=== PATIENT | male | born 1940 | race Hispanic/Latino ===

== ENCOUNTER 2017-05-14 13:09 | Inpatient (IN) | payer MEDICARE, OTHER ==
[2017-05-14 13:49] LABS: Basophils # (Auto) 0.1 K/mm3 (0.0-0.1); Basophils % (Auto) 0.8 % (0.0-1.8); Eosinophils # (Auto) 0.2 K/mm3 (0.0-0.4); Eosinophils % (Auto) 3.5 % (0.0-4.3); Hematocrit 47.4 % (35.5-45.6); Hemoglobin 16.1 gm/dl (11.8-15.2); Lymphocytes # (Auto) 1.8 K/mm3 (1.2-5.4); Lymphocytes % (Auto) 28.6 % (13.4-35.0); Mean Corpuscular HGB Conc 34 % (32-34); Mean Corpuscular Hemoglobin 32 pg (28-32); Mean Corpuscular Volume 94 fl (84-94); Monocytes # (Auto) 0.9 K/mm3 (0.0-0.8); Monocytes % (Auto) 14.4 % (0.0-7.3); Platelet Count 189 K/mm3 (140-440); Red Blood Count 5.04 M/mm3 (3.65-5.03); Red Cell Distribution Width 14.3 % (13.2-15.2)
--- NOTE | 2017-05-14 13:51 | Cat Scan Report ---
FINAL REPORT EXAM: CT HEAD/BRAIN WO CON HISTORY: neuro deficits TECHNIQUE: CT of the head was performed. No intravenous contrast was administered. PRIORS: None. FINDINGS: There is moderate cerebral atrophy. There is mild ischemic change in the white matter. There are old lacunar infarcts in right basal ganglia and right periventricular white matter. There is no evidence of intracranial hemorrhage. There is no edema, mass effect or midline shift. There are no abnormal extra-axial fluid collections. The ventricles are appropriate for brain volume. There is no skull fracture seen. The visualized aspects of the sinuses are clear. IMPRESSION: There is no acute intracranial abnormality identified.
[2017-05-14 14:02] LABS: BUN/Creatinine Ratio 21; Blood Urea Nitrogen 19 mg/dL (9-20); Calcium 9.1 mg/dL (8.4-10.2); Hemolysis Index 10
[2017-05-14 14:11] LABS: INR 0.98 (0.87-1.13)
[2017-05-14 14:12] LABS: Partial Thromboplastin Time 30.9 Sec. (24.2-36.6)
--- NOTE | 2017-05-14 14:40 | Emergency Department Report ---
ED Neuro Deficit HPI - General Chief Complaint: Neuro Symptoms/Deficit Stated Complaint: SLURRED SPEECH/HX OF STROKE Time Seen by Provider: 05/14/17 13:45 Source: patient Mode of arrival: Wheelchair Limitations: No Limitations - History of Present Illness Initial Comments: Patient is a 76-year-old male presents to emergency room with slurred speech and difficulty finding his words. Patient states the symptoms started about 3 days ago. Last known well time was 3 days ago. Patient states that he has left leg weakness due to a wound in [place]. But he is able to move all other extremities patient states that his strength is at baseline. Patient denies chest pain and shortness of breath. Patient denies abdominal pain and fever and chills. Patient denies confusion. -: Gradual, days(s) (3 days ago) Location: speech Presenting Symptoms: Present: Unable to Speak Clearly History of same: No Place: home Severity: severe Improves With: none Worsens With: none On Anticoagulants: No Context: gradual onset Associated Symptoms: denies other symptoms Treatments Prior to Arrival: Aspirin - Related Data Home Medications: Home Medications Medication Instructions Recorded Confirmed Last Taken Multivitamin [Multiple Vitamins] 1 each PO DAILY 05/14/17 05/14/17 05/13/17 Tamsulosin [Flomax] 0.4 mg PO QHS 05/14/17 05/14/17 05/13/17 diphenhydrAMINE [Benadryl CAP] 25 mg PO QHS PRN 05/14/17 05/14/17 05/13/17 Allergies/Adverse Reactions: Allergies Allergy/AdvReac Type Severity Reaction Status Date / Time No Known Allergies Allergy Unverified 05/24/13 16:31 ED Review of Systems ROS: Stated complaint: SLURRED SPEECH/HX OF STROKE Other details as noted in HPI Comment: All other systems reviewed and negative Constitutional: denies: chills, fever Eyes: denies: eye pain, eye discharge, vision change ENT: denies: ear pain, throat pain Respiratory: denies: cough, shortness of breath, wheezing Cardiovascular: denies: chest pain, palpitations Endocrine: no symptoms reported Gastrointestinal: denies: abdominal pain, nausea, diarrhea Genitourinary: denies: urgency, dysuria Musculoskeletal: denies: back pain, joint swelling, arthralgia Skin: denies: rash, lesions Neurological: denies: headache, weakness, paresthesias Psychiatric: denies: anxiety, depression Hematological/Lymphatic: denies: easy bleeding, easy bruising ED Past Medical Hx - Past Medical History Previous Medical History?: Yes Hx CVA: Yes Additional medical history: high chol - Surgical History Past Surgical History?: Yes Additional Surgical History: leg surgery - Family History Family history: hypertension - Social History Smoking Status: Never Smoker Substance Use Type: None - Medications Home Medications: Home Medications Medication Instructions Recorded Confirmed Last Taken Type Multivitamin [Multiple Vitamins] 1 each PO DAILY 05/14/17 05/14/17 05/13/17 History Tamsulosin [Flomax] 0.4 mg PO QHS 05/14/17 05/14/17 05/13/17 History diphenhydrAMINE [Benadryl CAP] 25 mg PO QHS PRN 05/14/17 05/14/17 05/13/17 History ED Neuro Physical Exam - General Limitations: No Limitations General appearance: alert, in no apparent distress Suspected Stroke: Yes - Head Head exam: Present: atraumatic, normocephalic - Eye Eye exam: Present: normal appearance - ENT ENT exam: Present: mucous membranes moist, TM's normal bilaterally - Neck Neck exam: Present: normal inspection - Respiratory Respiratory exam: Present: normal lung sounds bilaterally. Absent: respiratory distress - Cardiovascular Cardiovascular Exam: Present: regular rate, normal rhythm. Absent: systolic murmur, diastolic murmur, rubs, gallop - GI/Abdominal GI/Abdominal exam: Present: soft, normal bowel sounds - Rectal Rectal exam: Present: deferred - Extremities Exam Extremities exam: Present: normal inspection - Back Exam Back exam: Present: normal inspection - Neurological Exam Neurological exam: Present: alert, oriented X3 - NIHSS Assessment Interval: Baseline 1a. Level of Consciousness: alert 1b. LOC Questions: answers correctly 1c. LOC Commands: performs tasks correctly 2. Best Gaze: normal 3. Visual: no visual loss 4. Facial Palsy: normal symmetrical movement 5b. Motor Arm Right: no drift 5a. Motor Arm Left: no drift 6a. Motor Leg Left: no drift 6b. Motor Leg Right: no drift 7. Limb Ataxia: absent 8. Sensory: normal 9. Best Language: mild/moderate aphasia 10. Dysarthria: mild/moderate dysarthria 11. Extinction/Inattention: no abnormality Total Score: 2 Stroke Severity: Minor Stroke - Psychiatric Psychiatric exam: Present: normal affect, normal mood - Skin Skin exam: Present: warm, dry, intact, normal color. Absent: rash ED Course Vital Signs 05/14/17 05/14/17 05/14/17 13:13 13:56 13:58 Temperature 97.7 F Pulse Rate 89 Respiratory 18 Rate Blood Pressure 204/125 O2 Sat by Pulse 95 95 95 Oximetry 05/14/17 05/14/17 05/14/17 14:00 14:02 14:04 Temperature Pulse Rate 71 68 66 Respiratory 13 19 11 L Rate Blood Pressure 182/98 181/101 191/95 O2 Sat by Pulse 96 94 97 Oximetry 05/14/17 05/14/17 05/14/17 14:06 14:16 14:30 Temperature Pulse Rate 71 69 71 Respiratory 14 12 19 Rate Blood Pressure 191/95 196/106 207/119 O2 Sat by Pulse 94 95 97 Oximetry 05/14/17 05/14/17 05/14/17 14:46 15:00 15:16 Temperature Pulse Rate 71 71 67 Respiratory 13 19 21 Rate Blood Pressure 188/113 186/111 187/102 O2 Sat by Pulse 94 98 94 Oximetry 05/14/17 05/14/17 05/14/17 15:30 15:40 15:46 Temperature Pulse Rate 67 79 Respiratory 12 12 14 Rate Blood Pressure 200/107 170/90 O2 Sat by Pulse 95 95 97 Oximetry 05/14/17 05/14/17 05/14/17 16:00 16:16 16:30 Temperature Pulse Rate 82 73 77 Respiratory 16 12 14 Rate Blood Pressure 166/89 177/90 183/91 O2 Sat by Pulse 99 97 98 Oximetry 05/14/17 05/14/17 05/14/17 16:46 17:00 17:16 Temperature Pulse Rate 73 77 72 Respiratory 11 L 26 H 21 Rate Blood Pressure 162/99 159/76 171/85 O2 Sat by Pulse 98 97 95 Oximetry 05/14/17 05/14/17 17:30 18:00 Temperature Pulse Rate 70 68 Respiratory 12 21 Rate Blood Pressure 150/80 161/89 O2 Sat by Pulse 96 97 Oximetry - Reevaluation(s) Reevaluation #1: 05/14/17 15:15.... BP still I will treat with hydralazine. No change in neurologic status. - Lab Data Result diagrams: 02/23/18 13:23 05/14/17 13:23 Lab Results 05/14/17 05/14/17 05/14/17 Range/Units 13:22 13:23 13:23 WBC 6.3 (4.5-11.0) K/mm3 RBC 5.04 H (3.65-5.03) M/mm3 Hgb 16.1 H (11.8-15.2) gm/dl Hct 47.4 H (35.5-45.6) % MCV 94 (84-94) fl MCH 32 (28-32) pg MCHC 34 (32-34) % RDW 14.3 (13.2-15.2) % Plt Count 189 (140-440) K/mm3 Lymph % (Auto) 28.6 (13.4-35.0) % [place] % (Auto) 14.4 H (0.0-7.3) % Eos % (Auto) 3.5 (0.0-4.3) % Baso % (Auto) 0.8 (0.0-1.8) % Lymph # 1.8 (1.2-5.4) K/mm3 [place] # 0.9 H (0.0-0.8) K/mm3 Eos # 0.2 (0.0-0.4) K/mm3 Baso # 0.1 (0.0-0.1) K/mm3 Seg Neutrophils % 52.7 (40.0-70.0) % Seg Neutrophils # 3.3 (1.8-7.7) K/mm3 PT 13.5 (12.2-14.9) Sec. INR 0.98 (0.87-1.13) APTT 30.9 (24.2-36.6) Sec. Thrombin Time (15.1-19.6) Sec. Sodium (137-145) mmol/L Potassium (3.6-5.0) mmol/L Chloride (98-107) mmol/L Carbon Dioxide (22-30) mmol/L Anion Gap mmol/L BUN (9-20) mg/dL Creatinine (0.8-1.5) mg/dL Estimated GFR ml/min BUN/Creatinine Ratio % Glucose (75-100) mg/dL POC Glucose 126 H (70-105) Calcium (8.4-10.2) mg/dL Troponin T (0.00-0.029) ng/mL 05/14/17 05/14/17 Range/Units 13:23 13:23 WBC (4.5-11.0) K/mm3 RBC (3.65-5.03) M/mm3 Hgb (11.8-15.2) gm/dl Hct (35.5-45.6) % MCV (84-94) fl MCH (28-32) pg MCHC (32-34) % RDW (13.2-15.2) % Plt Count (140-440) K/mm3 Lymph % (Auto) (13.4-35.0) % [place] % (Auto) (0.0-7.3) % Eos % (Auto) (0.0-4.3) % Baso % (Auto) (0.0-1.8) % Lymph # (1.2-5.4) K/mm3 [place] # (0.0-0.8) K/mm3 Eos # (0.0-0.4) K/mm3 Baso # (0.0-0.1) K/mm3 Seg Neutrophils % (40.0-70.0) % Seg Neutrophils # (1.8-7.7) K/mm3 PT (12.2-14.9) Sec. INR (0.87-1.13) APTT (24.2-36.6) Sec. Thrombin Time 16.4 (15.1-19.6) Sec. Sodium 141 (137-145) mmol/L Potassium 4.0 (3.6-5.0) mmol/L Chloride 101.5 (98-107) mmol/L Carbon Dioxide 29 (22-30) mmol/L Anion Gap 15 mmol/L BUN 19 (9-20) mg/dL Creatinine 0.9 (0.8-1.5) mg/dL Estimated GFR > 60 ml/min BUN/Creatinine Ratio 21 % Glucose 125 H (75-100) mg/dL POC Glucose (70-105) Calcium 9.1 (8.4-10.2) mg/dL Troponin T < 0.010 (0.00-0.029) ng/mL - EKG Data -: EKG Interpreted by K[facility] EKG shows normal: sinus rhythm, axis, intervals, QRS complexes, ST-T waves Rate: normal Interpretation: other (positive for PVC) - Radiology Data Radiology results: report reviewed interpreted by me: No acute findings on head CT - Medical Decision Making Is a 76-year-old emergency room with slurred speech and aphasia appears to be secondary to his CVA. Will admit patient to the hospital for further eval and treatment. Discussed case with hospitalist, hospitalist agreed to admit. Patient is outside the window for TPA - Differential Diagnosis electrolyte imbalance. Dehydration. CVA. Critical Care Time: Yes Critical care attestation.: If time is entered above; I have spent that time in minutes in the direct care of this critically ill patient, excluding procedure time. Critical Care Time: 45 minutes spent for critical care time ED Disposition Clinical Impression: Aphasia, Slurred speech, CVA (cerebral vascular accident), Hypertension Disposition: OP ADMIT IP TO THIS HOSP Is pt being admited?: Yes Does the pt Need Aspirin: No Condition: Critical Time of Disposition: 15:15
[2017-05-14] MEDS ORDERED: ASPIRIN PO ONE (14:49)
[2017-05-14] MEDS ORDERED: APRESOLINE IV ONE (15:25)
--- NOTE | 2017-05-14 16:08 | History and Physical Report ---
History of Present Illness Chief complaint: I cant talk History of present illness: 76 YO Male with CVA, HLD presents to ED for evaluation. Pt states that he has experienced slurred speech, and difficulty finding his words, and left arm and leg weakness. Patient states the symptoms started 3 days ago, and have been persistent. Last known well time was 3 days ago. Pt seen and evaluated in ED and found to have evidence of acute CVA. Pt is outside the therapeutic window for TPA. Pt denies fever, chills, CP, Palpitations, NVD, Syncope, BRBPR, Trauma , BRBPR. Pt admitted to telemetry and treated IAW Stroke protocol. Past History Past Medical History: stroke Past Surgical History: Other (Left leg surgery) Social history: . denies: smoking, alcohol abuse, prescription drug abuse, IV drug use Family history: hypertension Medications and Allergies Allergies Allergy/AdvReac Type Severity Reaction Status Date / Time No Known Allergies Allergy Unverified 05/24/13 16:31 Home Medications Medication Instructions Recorded Confirmed Last Taken Type Multivitamin [Multiple Vitamins] 1 each PO DAILY 05/14/17 05/14/17 05/13/17 History Tamsulosin [Flomax] 0.4 mg PO QHS 05/14/17 05/14/17 05/13/17 History diphenhydrAMINE [Benadryl CAP] 25 mg PO QHS PRN 05/14/17 05/14/17 05/13/17 History Review of Systems Constitutional: no weight loss, no weight gain, no fever, no chills Ears, nose, mouth and throat: no ear pain, no ear discharge, no tinnitis, no decreased hearing, no nose pain, no nasal congestion Cardiovascular: no chest pain, no orthopnea, no palpitations, no rapid/ irregular heart beat, no edema, no syncope Respiratory: no cough, no cough with sputum, no excessive sputum, no hemoptysis , no shortness of breath Gastrointestinal: no abdominal pain, no nausea, no vomiting, no diarrhea, no constipation, no change in bowel habits Genitourinary Male: no hematuria, no flank pain, no discharge, no urinary frequency, no urinary hesitancy, no nocturia Rectal: no pain, no incontinence, no bleeding Musculoskeletal: no neck stiffness, no neck pain, no shooting arm pain, no arm numbness/tingling, no low back pain, no shooting leg pain Integumentary: no rash, no pruritis, no redness, no sores, no wounds, no jaundice Neurological: weakness, change in speech, gait dysfunction Psychiatric: no anxiety, no memory loss, no change in sleep habits, no sleep disturbances, no insomnia, no hypersomnia, no change in appetite Endocrine: no cold intolerance, no heat intolerance, no polyphagia, no excessive thirst, no polydipsia, no polyuria Hematologic/Lymphatic: no easy bruising, no easy bleeding, no lymphadenopathy, no lymphedema Allergic/Immunologic: no urticaria, no allergic rhinitis, no wheezing, no persistent infections, no anaphylaxis Exam - Constitutional Vitals: Temp Pulse Resp BP Pulse Ox 97.7 F 67 12 200/107 95 05/14/17 13:13 05/14/17 15:30 05/14/17 15:40 05/14/17 15:30 05/14/17 15:40 General appearance: Present: mild distress - EENT Eyes: Present: PERRL ENT: hearing intact, clear oral mucosa - Neck Neck: Present: supple, normal ROM - Respiratory Respiratory: bilateral: diminished - Cardiovascular Heart Sounds: Present: S1 & S2. Absent: rub, click - Extremities Extremities: pulses symmetrical, No edema Peripheral Pulses: within normal limits - Abdominal General gastrointestinal: Present: soft, non-tender, non-distended, normal bowel sounds Male genitourinary: Present: normal - Integumentary Integumentary: Present: clear, warm, dry - Musculoskeletal Musculoskeletal: left sided weakness - Psychiatric Psychiatric: appropriate mood/affect, intact judgment & insight - Neurologic Neurologic: focal deficits, no gait normal Results - Labs CBC & Chem 7: 05/14/17 13:23 05/14/17 13:23 Labs: Abnormal lab results 05/14/17 05/14/17 05/14/17 Range/Units 13:22 13:23 13:23 RBC 5.04 H (3.65-5.03) M/mm3 Hgb 16.1 H (11.8-15.2) gm/dl Hct 47.4 H (35.5-45.6) % [place] % (Auto) 14.4 H (0.0-7.3) % [place] # 0.9 H (0.0-0.8) K/mm3 Glucose 125 H (75-100) mg/dL POC Glucose 126 H (70-105) Assessment and Plan - Patient Problems (1) CVA (cerebral vascular accident) Current Visit: Yes Status: Suspected Qualifiers: Precerebral and cerebral artery: middle cerebral artery Laterality of affected vessel: right Plan to address problem: Stroke Protocol: CT head, MRI Brain, MRA Brain, Carotid Doppler, Echo, Antiplatelet therapy, Lipid panel, PT/OT/ Speech therapy (2) 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 (4) HLD (hyperlipidemia) Current Visit: Yes Status: Acute Qualifiers: Hyperlipidemia type: mixed hyperlipidemia Qualified Code(s): E78.2 - Mixed hyperlipidemia Plan to address problem: Lipid Panel, statin therapy, (5) Carotid stenosis Current Visit: Yes Status: Acute Plan to address problem: Carotid Doppler, vascular surgery consulted, (6) DVT prophylaxis Current Visit: Yes Status: Acute
[2017-05-14] MEDS ORDERED: TYLENOL PO PRN (16:09)
[2017-05-14] MEDS ORDERED: PROVENTIL IH PRN (16:09)
[2017-05-14] MEDS ORDERED: ZOFRAN IV PRN (16:09)
[2017-05-14] MEDS ORDERED: REGLAN PO PRN (16:09)
[2017-05-14] MEDS ORDERED: SODIUM CHLORIDE FLUSH SYRINGE 10 ML IV PRN (16:09)
[2017-05-14] MEDS ORDERED: PHENERGAN PR PRN (16:09)
[2017-05-14] MEDS: FLOMAX PO SCH (21:46)
[2017-05-15 06:03] LABS: Chol/HDL Ratio 5.17 %
--- NOTE | 2017-05-15 12:39 | Magnetic Resonance Report ---
MRI OF THE BRAIN WITHOUT CONTRAST: HISTORY: CVA PROCEDURE: Multiplanar, multisequence MR imaging of the brain without IV contrast was performed. FINDINGS: Limited exam. A 1.7 x 0.7 cm area of diffusion restriction is identified within the right side of the connie on diffusion image 10. There is no evidence for hemorrhage, mass or mass effect. No extra axial fluid collection. Advanced volume loss and nonspecific chronic white matter changes are identified. The midline structures are central. The basal cisterns are patent. Normal ventricular size. The orbital cavities and sella turcica demonstrate no abnormality. The visualized paranasal sinuses and mastoid air cells are well aerated. IMPRESSION: 1.7 x 0.7 cm area of subacute ischemia in the right connie. No evidence for hemorrhage. Volume loss. Chronic white matter changes.
--- NOTE | 2017-05-15 12:40 | Magnetic Resonance Report ---
MRA HEAD WITHOUT CONTRAST HISTORY: Stroke. [id number] imaging with MIP reformations of the [place] is submitted. The basilar artery appears irregular with focal areas of narrowing estimated at 50-75%. The basilar artery remains patent. The posterior cerebral arteries are patent with no significant stenosis. The remaining arteries appear widely patent and free of hemodynamically significant stenosis, aneurysm or dissection. IMPRESSION: No evidence for large vessel occlusion or aneurysm. 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
[2017-05-15] MEDS: PLAVIX PO SCH ×2 (13:26→22:07)
--- NOTE | 2017-05-15 14:23 | Progress Note ---
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 will place on coreg and norvasc // HLD (hyperlipidemia) ordered Lipid Panel, statin therapy, // Carotid stenosis Carotid Doppler showed 50-75% stenosis on Rt ICA, vascular surgery consulted, // DVT prophylaxis/GI Px lovenox /PPI Physical exam: General appearance: Present: mild distress - EENT Eyes: Present: PERRL ENT: hearing intact, clear oral mucosa - Neck Neck: Present: supple, normal ROM - Respiratory Respiratory: bilateral: diminished - Cardiovascular Heart Sounds: Present: S1 & S2. Absent: rub, click - Extremities Extremities: pulses symmetrical, No edema Peripheral Pulses: within normal limits - Abdominal General gastrointestinal: Present: soft, non-tender, non-distended, normal bowel sounds Male genitourinary: Present: normal - Integumentary Integumentary: Present: clear, warm, dry - Musculoskeletal Musculoskeletal: left sided weakness - Psychiatric Psychiatric: appropriate mood/affect, intact judgment & insight - Neurologic Neurologic: focal deficits, no gait normal Subjective Date of service: 05/15/17 Interval history: pt seen and examined c/o left sided weakness and difficulty in speech Objective - Constitutional Vitals: Vital Signs - 12hr 05/15/17 05/15/17 05/15/17 04:00 05:12 08:06 Temperature 98.0 F Pulse Rate 69 76 77 Respiratory 18 Rate Blood Pressure 167/99 171/95 O2 Sat by Pulse 95 96 Oximetry 05/15/17 10:00 Temperature Pulse Rate Respiratory Rate Blood Pressure O2 Sat by Pulse 96 Oximetry - Labs CBC & Chem 7: 05/14/17 13:23 05/14/17 13:23 Labs: Abnormal lab results 05/14/17 05/15/17 Range/Units 13:22 05:11 POC Glucose 126 H (70-105) Cholesterol 202 H (50-199) mg/dL LDL Cholesterol Direct 145 H (50-130) mg/dL HDL Cholesterol 39 L (40-59) mg/dL
[2017-05-15] MEDS ORDERED: APRESOLINE PO PRN (17:18)
[2017-05-15] MEDS: FLOMAX PO SCH (22:07)
[2017-05-15] MEDS: NORVASC PO SCH (22:07)
[2017-05-15] MEDS: COREG PO SCH (22:07)
[2017-05-16] MEDS ORDERED: APRESOLINE IV PRN (09:30)
[2017-05-16] MEDS: COREG PO SCH ×3 (11:22→22:32)
[2017-05-16] MEDS: NORVASC PO SCH (11:23)
[2017-05-16] MEDS: PLAVIX PO SCH (11:23)
--- NOTE | 2017-05-16 13:31 | Consultation ---
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 He has a prior history of having head trauma about 2 years ago, had the onset of weakness and numbness of his left side, speech difficulties, speech slurring, associated with headache and now has residual weakness and difficulty walking. When I initially saw him, he cannot remember my name, seemed somewhat confused. 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 Subsequent to that, he had persistent vertigo and memory loss. I know this from the statements he made to me following the head injury and he did consult with me informally about followup care during the interval that I was seeing him on a frequent basis. PHYSICAL EXAMINATION: NEUROLOGIC: On my examination at this point, he has difficulty with his gait, slurred speech problems with coordination of his left side, bilateral leg weakness. Cranial nerves 2-12 are intact except for the dysarthria and dysphagia. The patient has a supple neck, can stand up, walk. No seizures are noted. No obvious motor weakness is present. IMPRESSION: Acute stroke, superimposed on a history of prior head trauma. Please see my notes regarding prior evaluations of the patient when he was hospitalized at [facility] with a traumatic head injury. Plan to review the CT, MRI, make further recommendations. [facility]# [id number] PATRICK/TYLER
--- NOTE | 2017-05-16 13:45 | Progress Note ---
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 Placed on coreg and norvasc will increase coreg to 12.5 BID // HLD (hyperlipidemia) ordered Lipid Panel, statin therapy, // Carotid stenosis Carotid Doppler showed 50-75% stenosis on Rt ICA, vascular surgery consulted, // DVT prophylaxis/GI Px lovenox /PPI Discharge plan: need KATHY Physical exam: General appearance: Present: mild distress - EENT Eyes: Present: PERRL ENT: hearing intact, clear oral mucosa - Neck Neck: Present: supple, normal ROM - Respiratory Respiratory: bilateral: diminished - Cardiovascular Heart Sounds: Present: S1 & S2. Absent: rub, click - Extremities Extremities: pulses symmetrical, No edema Peripheral Pulses: within normal limits - Abdominal General gastrointestinal: Present: soft, non-tender, non-distended, normal bowel sounds Male genitourinary: Present: normal - Integumentary Integumentary: Present: clear, warm, dry - Musculoskeletal Musculoskeletal: left sided weakness - Psychiatric Psychiatric: appropriate mood/affect, intact judgment & insight - Neurologic Neurologic: focal deficits, no gait normal Subjective Date of service: 05/16/17 Interval history: pt seen and examined c/o left sided weakness and difficulty in speech had PT eval today, BP remained elevated Objective - Constitutional Vitals: Vital Signs - 12hr 05/16/17 05/16/17 05/16/17 05:00 05:43 08:38 Temperature 98.2 F 97.6 F Pulse Rate 65 73 74 Respiratory 20 18 Rate Blood Pressure Blood Pressure 160/93 166/99 [Left] O2 Sat by Pulse 94 96 Oximetry 05/16/17 05/16/17 11:22 11:23 Temperature Pulse Rate 74 74 Respiratory Rate Blood Pressure 166/99 166/99 Blood Pressure [Left] O2 Sat by Pulse Oximetry - Labs CBC & Chem 7: 05/14/17 13:23 05/14/17 13:23
[2017-05-16] MEDS: FLOMAX PO SCH (22:32)
[2017-05-17] MEDS ORDERED: COREG PO SCH (08:05)
--- NOTE | 2017-05-17 09:57 | Consultation ---
History of Present Illness Consult date: 05/17/17 History of present illness: see my neurology consult note dictated yesterday... patint well known to me medically I have been seeing him for about ten years this is first time stroke plan to review imaging studies determine best treatment options Thanks for consult Past History Past Medical History: stroke Past Surgical History: Other (Left leg surgery) Social history: . denies: smoking, alcohol abuse, prescription drug abuse, IV drug use Family history: hypertension Medications and Allergies Allergies Allergy/AdvReac Type Severity Reaction Status Date / Time No Known Allergies Allergy Unverified 05/24/13 16:31 Home Medications Medication Instructions Recorded Confirmed Last Taken Type Multivitamin [Multiple Vitamins] 1 each PO DAILY 05/14/17 05/14/17 05/13/17 History Tamsulosin [Flomax] 0.4 mg PO QHS 05/14/17 05/14/17 05/13/17 History diphenhydrAMINE [Benadryl CAP] 25 mg PO QHS PRN 05/14/17 05/14/17 05/13/17 History Active Meds: Active Medications Acetaminophen (Tylenol) 650 mg PO Q4H PRN PRN Reason: Pain, Mild (1-3) Albuterol (Proventil) 2.5 mg IH Q3HRT PRN PRN Reason: Shortness Of Breath Amlodipine Besylate (Norvasc) 10 mg PO QDAY [facility] Last Admin: 05/16/17 11:23 Dose: 10 mg Atorvastatin Calcium (Lipitor) 40 mg PO QHS [facility] Last Admin: 05/16/17 22:32 Dose: 40 mg Carvedilol (Coreg) 25 mg PO BID [facility] Clopidogrel Bisulfate (Plavix) 75 mg PO QDAY [facility] Last Admin: 05/16/17 11:23 Dose: 75 mg Hydralazine HCl (Apresoline) 5 mg IV Q30MIN PRN PRN Reason: Hypertension Metoclopramide HCl (Reglan) 10 mg PO Q6H PRN PRN Reason: Nausea And Vomiting Ondansetron HCl (Zofran) 4 mg IV Q8H PRN PRN Reason: N/V unrelieved by Reglan Promethazine HCl (Phenergan) 25 mg [place] Q6H PRN PRN Reason: Nausea And Vomiting Sodium Chloride (Sodium Chloride Flush Syringe 10 Ml) 10 ml IV PRN PRN PRN Reason: LINE FLUSH Tamsulosin HCl (Flomax) 0.4 mg PO QHS [facility] Last Admin: 05/16/17 22:32 Dose: 0.4 mg Physical Examination - Vital Signs Vital Signs: Vital Signs Temp Pulse Resp BP Pulse Ox 97.7 F 89 18 204/125 95 05/14/17 13:13 05/14/17 13:13 05/14/17 13:13 05/14/17 13:13 05/14/17 13:13 Results - Laboratory Findings CBC and BMP: 05/14/17 13:23 05/14/17 13:23 Abnormal Lab Findings: Abnormal Labs 05/14/17 05/14/17 05/14/17 13:22 13:23 13:23 RBC 5.04 H Hgb 16.1 H Hct 47.4 H [place] % (Auto) 14.4 H [place] # 0.9 H Glucose 125 H POC Glucose 126 H Cholesterol LDL Cholesterol Direct HDL Cholesterol 05/15/17 05:11 RBC Hgb Hct [place] % (Auto) [place] # Glucose POC Glucose Cholesterol 202 H LDL Cholesterol Direct 145 H HDL Cholesterol 39 L
[2017-05-17] MEDS: PLAVIX PO SCH (11:15)
[2017-05-17] MEDS: COREG PO SCH ×2 (11:15→22:09)
[2017-05-17] MEDS: NORVASC PO SCH (11:15)
--- NOTE | 2017-05-17 14:43 | Consultation ---
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 At time of examination, the patient has residual left-sided weakness and mild degree of expressive aphasia with slurring of. He states that his symptoms began on Wednesday and his [id number] brought him to the emergency room. An MRI and MRA were performed. Carotid ultrasound was also performed which demonstrates 50 -79% stenosis on the right. The MRA demonstrates basilar artery stenosis. Past History Past Medical History: stroke Past Surgical History: Other (Left leg surgery) Social history: . denies: smoking, alcohol abuse, prescription drug abuse, IV drug use Family history: hypertension Medications and Allergies Allergies Allergy/AdvReac Type Severity Reaction Status Date / Time No Known Allergies Allergy Unverified 05/24/13 16:31 Home Medications Medication Instructions Recorded Confirmed Last Taken Type Multivitamin [Multiple Vitamins] 1 each PO DAILY 05/14/17 05/14/17 05/13/17 History Tamsulosin [Flomax] 0.4 mg PO QHS 05/14/17 05/14/17 05/13/17 History diphenhydrAMINE [Benadryl CAP] 25 mg PO QHS PRN 05/14/17 05/14/17 05/13/17 History Active Meds: Active Medications Acetaminophen (Tylenol) 650 mg PO Q4H PRN PRN Reason: Pain, Mild (1-3) Albuterol (Proventil) 2.5 mg IH Q3HRT PRN PRN Reason: Shortness Of Breath Amlodipine Besylate (Norvasc) 10 mg PO QDAY [facility] Last Admin: 05/17/17 11:15 Dose: 10 mg Atorvastatin Calcium (Lipitor) 40 mg PO QHS [facility] Last Admin: 05/16/17 22:32 Dose: 40 mg Carvedilol (Coreg) 25 mg PO BID [facility] Last Admin: 05/17/17 11:15 Dose: 25 mg Clopidogrel Bisulfate (Plavix) 75 mg PO QDAY [facility] Last Admin: 05/17/17 11:15 Dose: 75 mg Hydralazine HCl (Apresoline) 5 mg IV Q30MIN PRN PRN Reason: Hypertension Metoclopramide HCl (Reglan) 10 mg PO Q6H PRN PRN Reason: Nausea And Vomiting Ondansetron HCl (Zofran) 4 mg IV Q8H PRN PRN Reason: N/V unrelieved by Reglan Promethazine HCl (Phenergan) 25 mg [place] Q6H PRN PRN Reason: Nausea And Vomiting Sodium Chloride (Sodium Chloride Flush Syringe 10 Ml) 10 ml IV PRN PRN PRN Reason: LINE FLUSH Tamsulosin HCl (Flomax) 0.4 mg PO QHS [facility] Last Admin: 05/16/17 22:32 Dose: 0.4 mg Review of Systems All systems: negative Exam - Constitutional Vitals: Temp Pulse Resp BP Pulse Ox 97.6 F 76 20 160/87 95 05/17/17 08:44 05/17/17 08:44 05/17/17 08:44 05/17/17 08:44 05/17/17 08:44 General appearance: Present: no acute distress - EENT Eyes: Present: EOM intact ENT: hearing intact - Neck Neck: Present: supple, normal ROM - Abdominal General gastrointestinal: Present: deferred Male genitourinary: Present: deferred - Rectal Rectal Exam: deferred - Musculoskeletal Musculoskeletal: left sided weakness - Psychiatric Psychiatric: appropriate mood/affect, cooperative Results - Labs CBC & Chem 7: 05/14/17 13:23 05/14/17 13:23 - Imaging and Cardiology MRI - head: report reviewed, image reviewed Venous US: report reviewed, image reviewed Assessment and Plan Patient with a history of carotid stenosis of 50-79% on the right. We will order a CTA of the head and neck for further evaluation of. 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 Recommended the patient be optimized on antihypertensives, a statin and an an antiplatelet drugs.
[2017-05-17] MEDS: FLOMAX PO SCH (22:09)
--- NOTE | 2017-05-17 23:57 | Cat Scan Report ---
FINAL REPORT PROCEDURE: CT ANGIO NECK TECHNIQUE: Computerized tomographic angiography of the neck was performed after the IV injection of iodinated nonionic contrast including image processing. The image data was postprocessed using 2-dimensional multiplanar reformatted (MPR) and 3-dimensional (MIP and/or volume rendered) techniques. HISTORY: carotid stenosis COMPARISON: No prior studies are available for comparison. Note: Assessment of carotid artery stenosis is based on measurement of the distal internal carotid artery diameter as the denominator for stenosis calculations and the [place] Symptomatic Carotid Endarterectomy Trial (NASCET) stenosis criteria . CPT 3100F FINDINGS: Sinuses: Normal . Non vascular cervical structures: No significant abnormality . Aortic arch: There is calcified plaque in the aortic arch. There is no aneurysm or dissection.. Right carotid artery: The right common carotid artery is patent. There is calcified and soft plaque at the carotid bulb and proximal right internal carotid artery. There is focal high-grade stenosis of the origin of the right internal carotid artery at approximately 95 percent. Distal right internal carotid artery is patent and normal in caliber. There is no dissection.. Left carotid artery: The left common carotid artery is patent. There is calcified plaque at the left carotid bulb with 50-69 percent focal stenosis. Remainder of the internal carotid artery is patent and normal in caliber. There is no dissection.. Vertebral arteries: The right vertebral artery is dominant. Left vertebral artery is small in caliber but patent.. IMPRESSION: There is calcified and soft plaque at the carotid bulb and proximal right internal carotid artery. There is focal high-grade stenosis of the origin of the right internal carotid artery at approximately 95 percent. . There is calcified plaque at the left carotid bulb with 50-69 percent focal stenosis. Remainder of the internal carotid artery is patent and normal in caliber. The right vertebral artery is dominant. Left vertebral artery is small in caliber but patent..
--- NOTE | 2017-05-18 02:32 | Cat Scan Report ---
FINAL REPORT PROCEDURE: CT ANGIO HEAD TECHNIQUE: Computerized tomographic angiography of the head was performed after the IV injection of iodinated nonionic contrast including image processing. The image data was postprocessed using 2-dimensional multiplanar reformatted (MPR) and 3-dimensional (MIP and/or volume rendered) techniques. HISTORY: carotid stenosis COMPARISON: No prior studies are available for comparison. FINDINGS: Cerebrum: No evidence of hemorrhage, acute ischemia or mass. Cerebellum: No evidence of hemorrhage, acute ischemia or mass. Subarachnoid spaces and ventricles: Normal. Intracranial vessels: Carotid siphon: Normal. Anterior cerebral: Normal. Middle cerebral: Normal. Posterior cerebral:Normal. Vertebral arteries including basilar: The right vertebral artery is dominant. The left humeral artery is smaller but patent. Aneurysms: None. Dural sinuses: Normal. IMPRESSION: Normal Examination.
[2017-05-18] MEDS: NORVASC PO SCH (10:18)
[2017-05-18] MEDS: PLAVIX PO SCH (10:18)
[2017-05-18] MEDS: COREG PO SCH ×2 (10:18→22:44)
--- NOTE | 2017-05-18 15:17 | Progress Note ---
Assessment and Plan Pt's CTA reviewed. Report suggest DAVID stenosis of approximately 95%. Though significant right carotid artery stenosis, it is unlikely to be the source of his recent CVA. Therefore we do not recommend urgent surgical intervention. Would allow at least 6 weeks to recover, then have the pt follow in our office as an outpt to be re-eval'd for a Right CEA. Pt should be optimized medically, including continuation of antiplatelet (Plavix ) and Statin (Lipitor) therapies. This was discussed with the pt and his family at the bedside. They will call to schedule a f/u in our office. D/c planning in progress of Rehab facility ([facility]). Subjective Date of service: 05/18/17 Interval history: Pt awake and alert. Denies new complaint. Objective - Constitutional Vitals: Vital Signs - 12hr 05/18/17 05/18/17 05/18/17 04:19 08:27 10:00 Temperature 98.4 F Pulse Rate 68 75 78 Pulse Rate [ 76 Left Radial] Pulse Rate [ 78 Right Radial] Respiratory 20 Rate Blood Pressure 148/82 173/106 O2 Sat by Pulse 93 97 98 Oximetry 05/18/17 11:29 Temperature 97.4 F L Pulse Rate Pulse Rate [ Left Radial] Pulse Rate [ Right Radial] Respiratory 20 Rate Blood Pressure 168/94 O2 Sat by Pulse Oximetry General appearance: Present: no acute distress - EENT Eyes: EOM intact ENT: hearing intact - Neck Neck: supple - Respiratory Respiratory effort: normal Extremities: normal temperature - Neurologic Neurologic: other (slurred speech with slowed speech pattern) - Psychiatric Psychiatric: appropriate mood/affect, intact judgment & insight, cooperative - Labs CBC & Chem 7: 05/14/17 13:23 05/14/17 13:23
--- NOTE | 2017-05-18 16:10 | Progress Note ---
<MT ROCA - Last Filed: 05/18/17 16:11> Assessment and Plan Assessment and plan: //CVA (cerebral vascular accident) followed Stroke Protocol: CT head, MRI Brain, MRA Brain, Carotid Doppler, Echo, Antiplatelet therapy, Lipid panel, PT/OT/ Speech therapy MRI showed right pontine CVA, preserved Ef on 2d echo cont on aspirin, statin, consulted neurology will need KATHY per PT // Dysarthria due to acute cerebellar cerebrovascular accident (CVA) speech therapy recommended outpt follow up cont on regular consistency and necter thick liquid // HTN (hypertension), uncontrolled monitor BP q shift, maintained permissive hypertension overnight. Placed on coreg and norvasc will increase coreg to 12.5 BID // HLD (hyperlipidemia) ordered Lipid Panel, statin therapy, // Carotid stenosis Carotid Doppler showed 50-75% stenosis on Rt ICA, vascular surgery consulted, // DVT prophylaxis/GI Px lovenox /PPI History Interval history: Patient seen and examined. No new events overnight. Labs and nursing notes reviewed. Hospitalist Physical - Constitutional Vitals: Temp Pulse Resp BP Pulse Ox 97.4 F L 76 20 168/94 98 05/18/17 11:29 05/18/17 10:00 05/18/17 11:29 05/18/17 11:29 05/18/17 10:00 General appearance: Present: no acute distress, well-nourished - EENT Eyes: Present: PERRL, EOM intact ENT: hearing intact, clear oral mucosa - Neck Neck: Present: supple, normal ROM - Respiratory Respiratory effort: normal Respiratory: bilateral: CTA - Cardiovascular Rhythm: regular Heart Sounds: Present: S1 & S2 - Abdominal General gastrointestinal: soft, non-tender, non-distended - Integumentary Integumentary: Present: clear, warm, dry - Psychiatric Psychiatric: appropriate mood/affect, cooperative - Neurologic Neurologic: other (slurred speech) - Allied Health Allied health notes reviewed: nursing Results - Labs CBC & Chem 7: 05/14/17 13:23 05/14/17 13:23 Labs: Laboratory Last Values WBC 6.3 K/mm3 (4.5-11.0) 05/14/17 13:23 RBC 5.04 M/mm3 (3.65-5.03) H 05/14/17 13:23 Hgb 16.1 gm/dl (11.8-15.2) H 05/14/17 13:23 Hct 47.4 % (35.5-45.6) H 05/14/17 13:23 MCV 94 fl (84-94) 05/14/17 13:23 MCH 32 pg (28-32) 05/14/17 13:23 MCHC 34 % (32-34) 05/14/17 13:23 RDW 14.3 % (13.2-15.2) 05/14/17 13:23 Plt Count 189 K/mm3 (140-440) 05/14/17 13:23 Lymph % (Auto) 28.6 % (13.4-35.0) 05/14/17 13:23 [place] % (Auto) 14.4 % (0.0-7.3) H 05/14/17 13:23 Eos % (Auto) 3.5 % (0.0-4.3) 05/14/17 13:23 Baso % (Auto) 0.8 % (0.0-1.8) 05/14/17 13:23 Lymph # 1.8 K/mm3 (1.2-5.4) 05/14/17 13:23 [place] # 0.9 K/mm3 (0.0-0.8) H 05/14/17 13:23 Eos # 0.2 K/mm3 (0.0-0.4) 05/14/17 13:23 Baso # 0.1 K/mm3 (0.0-0.1) 05/14/17 13:23 Seg Neutrophils % 52.7 % (40.0-70.0) 05/14/17 13:23 Seg Neutrophils # 3.3 K/mm3 (1.8-7.7) 05/14/17 13:23 PT 13.5 Sec. (12.2-14.9) 05/14/17 13:23 INR 0.98 (0.87-1.13) 05/14/17 13:23 APTT 30.9 Sec. (24.2-36.6) 05/14/17 13:23 Thrombin Time 16.4 Sec. (15.1-19.6) 05/14/17 13:23 Sodium 141 mmol/L (137-145) 05/14/17 13:23 Potassium 4.0 mmol/L (3.6-5.0) 05/14/17 13:23 Chloride 101.5 mmol/L (98-107) 05/14/17 13:23 Carbon Dioxide 29 mmol/L (22-30) 05/14/17 13:23 Anion Gap 15 mmol/L 05/14/17 13:23 BUN 19 mg/dL (9-20) 05/14/17 13:23 Creatinine 0.9 mg/dL (0.8-1.5) 05/14/17 13:23 Estimated GFR > 60 ml/min 05/14/17 13:23 BUN/Creatinine Ratio 21 % 05/14/17 13:23 Glucose 125 mg/dL (75-100) H 05/14/17 13:23 POC Glucose 126 (70-105) H 05/14/17 13:22 Calcium 9.1 mg/dL (8.4-10.2) 05/14/17 13:23 Troponin T < 0.010 ng/mL (0.00-0.029) 05/14/17 13:23 Triglycerides 91 mg/dL (2-149) 05/15/17 05:11 Cholesterol 202 mg/dL (50-199) H 05/15/17 05:11 LDL Cholesterol Direct 145 mg/dL (50-130) H 05/15/17 05:11 HDL Cholesterol 39 mg/dL (40-59) L 05/15/17 05:11 Cholesterol/HDL Ratio 5.17 % 05/15/17 05:11 <VALERIE VELASQUEZ - Last Filed: 05/18/17 17:13> Assessment and Plan Assessment and plan: I saw and evaluated the patient. I agree with the findings and the plan of care as documented in the Nurse Practitioner's~note, with the following corrections and additions. Again optimize medical management appears to be stable at this particular time. Statin has been added an appointment for Plavix. Follow-up with neurology. All complete. [facility] Hospitalist Physical - Constitutional Vitals: Temp Pulse Resp BP Pulse Ox 97.4 F L 76 20 168/94 98 05/18/17 11:29 05/18/17 10:00 05/18/17 11:29 05/18/17 11:29 05/18/17 10:00 Results - Labs CBC & Chem 7: 05/14/17 13:23 05/14/17 13:23 Labs: Laboratory Last Values WBC 6.3 K/mm3 (4.5-11.0) 05/14/17 13:23 RBC 5.04 M/mm3 (3.65-5.03) H 05/14/17 13:23 Hgb 16.1 gm/dl (11.8-15.2) H 05/14/17 13:23 Hct 47.4 % (35.5-45.6) H 05/14/17 13:23 MCV 94 fl (84-94) 05/14/17 13:23 MCH 32 pg (28-32) 05/14/17 13:23 MCHC 34 % (32-34) 05/14/17 13:23 RDW 14.3 % (13.2-15.2) 05/14/17 13:23 Plt Count 189 K/mm3 (140-440) 05/14/17 13:23 Lymph % (Auto) 28.6 % (13.4-35.0) 05/14/17 13:23 [place] % (Auto) 14.4 % (0.0-7.3) H 05/14/17 13:23 Eos % (Auto) 3.5 % (0.0-4.3) 05/14/17 13:23 Baso % (Auto) 0.8 % (0.0-1.8) 05/14/17 13:23 Lymph # 1.8 K/mm3 (1.2-5.4) 05/14/17 13:23 [place] # 0.9 K/mm3 (0.0-0.8) H 05/14/17 13:23 Eos # 0.2 K/mm3 (0.0-0.4) 05/14/17 13:23 Baso # 0.1 K/mm3 (0.0-0.1) 05/14/17 13:23 Seg Neutrophils % 52.7 % (40.0-70.0) 05/14/17 13:23 Seg Neutrophils # 3.3 K/mm3 (1.8-7.7) 05/14/17 13:23 PT 13.5 Sec. (12.2-14.9) 05/14/17 13:23 INR 0.98 (0.87-1.13) 05/14/17 13:23 APTT 30.9 Sec. (24.2-36.6) 05/14/17 13:23 Thrombin Time 16.4 Sec. (15.1-19.6) 05/14/17 13:23 Sodium 141 mmol/L (137-145) 05/14/17 13:23 Potassium 4.0 mmol/L (3.6-5.0) 05/14/17 13:23 Chloride 101.5 mmol/L (98-107) 05/14/17 13:23 Carbon Dioxide 29 mmol/L (22-30) 05/14/17 13:23 Anion Gap 15 mmol/L 05/14/17 13:23 BUN 19 mg/dL (9-20) 05/14/17 13:23 Creatinine 0.9 mg/dL (0.8-1.5) 05/14/17 13:23 Estimated GFR > 60 ml/min 05/14/17 13:23 BUN/Creatinine Ratio 21 % 05/14/17 13:23 Glucose 125 mg/dL (75-100) H 05/14/17 13:23 POC Glucose 126 (70-105) H 05/14/17 13:22 Calcium 9.1 mg/dL (8.4-10.2) 05/14/17 13:23 Troponin T < 0.010 ng/mL (0.00-0.029) 05/14/17 13:23 Triglycerides 91 mg/dL (2-149) 05/15/17 05:11 Cholesterol 202 mg/dL (50-199) H 05/15/17 05:11 LDL Cholesterol Direct 145 mg/dL (50-130) H 05/15/17 05:11 HDL Cholesterol 39 mg/dL (40-59) L 05/15/17 05:11 Cholesterol/HDL Ratio 5.17 % 05/15/17 05:11
[2017-05-18] MEDS: FLOMAX PO SCH (22:44)
--- NOTE | 2017-05-19 08:43 | Progress Note ---
Subjective Date of service: 05/19/17 Objective - Constitutional Vitals: Vital Signs - 12hr 05/18/17 05/19/17 05/19/17 22:44 00:32 00:33 Temperature 97.9 F Pulse Rate 68 67 Respiratory 20 Rate Blood Pressure 154/84 146/80 O2 Sat by Pulse 94 Oximetry 05/19/17 04:31 Temperature 97.7 F Pulse Rate 63 Respiratory 20 Rate Blood Pressure 152/83 O2 Sat by Pulse 92 Oximetry - Labs CBC & Chem 7: 05/14/17 13:23 05/14/17 13:23
[2017-05-19] MEDS: PLAVIX PO SCH (11:37)
[2017-05-19] MEDS: COREG PO SCH (11:37)
[2017-05-19] MEDS: NORVASC PO SCH (11:37)
--- NOTE | 2017-05-19 12:43 | Discharge Summary ---
Providers - Providers Date of Admission: 05/14/17 16:09 Date of discharge: 05/19/17 Attending physician: FIOR YANG 05/14/17 16:09 Occupational Therapy Evaluate and Treat [CONS] Routine Comment: Reason For Exam: Neuro deficits Physical Therapy Evaluation and Treat [CONS] Routine Comment: Reason For Exam: Neuro deficits 05/14/17 20:46 Consult to Physician [CONS] Routine Consulting Provider: VALERIE STEWART Reason For Exam: carotid stenosis Place consult to:: Dr. Stewart Notified:: Marizol RN Phone number called:: Was contact made?: Yes If yes, spoke with:: Corine-answering service Time called:: 09:01 Comment:: Call transferred and consult information given to Dr. Sultana 05/15/17 14:07 Consult to Physician [CONS] Routine Consulting Provider: LILIAM MEYER Reason For Exam: CVA Place consult to:: neurology Notified:: Marizol VELAZQUEZ Phone number called:: Was contact made?: Yes If yes, spoke with:: Rocael-answering service Time called:: 16:42 05/15/17 17:07 Speech Therapy Evaluation and Treat [CONS] Urgent Reason For Exam: cva 05/18/17 10:24 Consult to Dietitian/Nutrition [CONS] Routine Physician Instructions: Reason For Exam: Reason for Consult: Diet education Primary care physician: DOLL WIG [employer] [employer] Hospitalization Condition: Stable Pertinent studies: No acute findings on head CT CAROTID DUPLEX DONE BEDSIDE.RT.ICA: 50-79% STENOSIS BY DOPPLER VELOCITIES ( HIGHEST PSV/EDV= 165/27).LT.ICA : <50% STENOSIS BY DOPPLER VELOCITIES.ANTEGRADE VERTEBRAL ARTERY FLOW BILATERALLY. Echocardiogram reveals ejection fraction 60-65% with left ventricular diastolic dysfunction MRI revealed 1.7 x 0.7 cm area of subacute ischemia in the right connie. No evidence for hemorrhage. Volume loss. Chronic white matter changes. MRA head revealed No evidence for large vessel occlusion or aneurysm. 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 CTA head was Normal CTA neck revealed There is calcified and soft plaque at the carotid bulb and proximal right internal carotid artery. There is focal high-grade stenosis of the origin of the right internal carotid artery at approximately 95 percent. . There is calcified plaque at the left carotid bulb with 50-69 percent focal stenosis. Remainder of the internal carotid artery is patent and normal in caliber. The right vertebral artery is dominant. Left vertebral artery is small in caliber but patent. Hospital course: Patient is a 76-year-old male presents to emergency room with slurred speech and difficulty finding his words. Patient states the symptoms started about 3 days prior to admission. -Patient was found to have an acute CVA and was initiated on antiplatelet and statin therapy. Carotid Doppler revealed stenosis on right ICA, but the etiology of the stroke is unlikely from this source therefore no urgent intervention was initiated at this time. -Patient was also treated with antihypertensives for elevated blood pressure. -Patient was stable for discharge to subacute rehabilitation facility, [place] where he will receive physical therapy, occupational therapy and speech therapy. Patient was discharged with appropriate medications and advised to follow up with vascular surgeons within 6 weeks of discharge. Discharge diagnoses Acute CVA Dysarthria due to acute cerebellar CVA Uncontrolled hypertension Hyperlipidemia Carotid stenosis DVT prophylaxis GI prophylaxis Disposition: [id number] IN REHAB FACILITY Time spent for discharge: 32 minutes Core Measure Documentation - Palliative Care Palliative Care/ Comfort Measures: Not Applicable - Core Measures Any of the following diagnoses?: stroke - Stroke Discharge Requirements Statin for LDL = or >70 mg/dl on DC: Yes Anticoag for atrial fib/atrial flutter: Not Applicable Antithrombotic for ischemic stroke: Yes Exam - Constitutional Vitals: Temp Pulse Resp BP Pulse Ox 97.7 F 69 20 139/92 92 05/19/17 04:31 05/19/17 11:37 05/19/17 04:31 05/19/17 11:37 05/19/17 04:31 General appearance: Present: no acute distress, well-nourished - EENT Eyes: Present: PERRL ENT: hearing intact, clear oral mucosa - Neck Neck: Present: supple, normal ROM - Respiratory Respiratory effort: normal Respiratory: bilateral: CTA - Cardiovascular Heart Sounds: Present: S1 & S2. Absent: rub, click - Extremities Extremities: pulses symmetrical, No edema Peripheral Pulses: within normal limits - Abdominal General gastrointestinal: Present: soft, non-tender, non-distended, normal bowel sounds - Integumentary Integumentary: Present: clear, warm, dry - Musculoskeletal Musculoskeletal: generalized weakness - Psychiatric Psychiatric: appropriate mood/affect, intact judgment & insight - Neurologic Neurologic: moves all extremities - Allied Health Allied health notes reviewed: nursing Plan Activity: fall precautions Weight Bearing Status: Weight Bear as Tolerated Diet: low fat, low cholesterol, low salt, other (Regular diet with thin liquids. Liquids by cup only, no straw, small sips. Maintain Aspiration Precautions) Special Instructions: physical therapy, occupational therapy Durable Medical Equipment Needed Upon Discharge: [employer]ling Follow up with: PRIMARY CARE, [Primary Care Provider] - 3-5 Days NITO HERNANDEZ DO [Staff Physician] - 6 Weeks Prescriptions: AtorvaSTATin [Lipitor] 40 mg PO QHS #30 tablet amLODIPine [Norvasc] 10 mg PO QDAY #30 tablet Carvedilol [Coreg] 25 mg PO BID #60 tablet Clopidogrel [Plavix] 75 mg PO QDAY #30 tablet
[2017-05-19 13:38] VITALS: BP 142/91
== END 2017-05-19 17:31 | DRG 66 ==
LOC: ED 13:09 → 4A 16:09
PROVIDERS: ADMIT Internal Medicine; ATTEND Family Medicine
DX: I63.8 Other cerebral infarction (principal); R47.1 Dysarthria and anarthria; I10 Essential (primary) hypertension; E78.5 Hyperlipidemia, unspecified; R47.01 Aphasia; I65.29 Occlusion and stenosis of unspecified carotid artery; Z82.49 Family history of ischemic heart disease and other diseases of the circulatory system; Z79.899 Other long term (current) drug therapy; I69.322 Dysarthria following cerebral infarction
CPT/HCPCS: 36415; 70450; 70496; 70498; 70544; 70551; 80048; 80061; 82962; 84484; 85025; 85610; 85670; 85730; 93005; 93010; 93306; 93880; 96374; A9270-GY; G8978-GP; G8979-GP; G8987-GO; G8988-GO; G8996-GN; G8997-GN; J0360; Q9967

== ENCOUNTER 2017-08-01 19:00 | Emergency (ER) | payer MEDICARE, OTHER ==
[2017-08-01] MEDS ORDERED: NACL 0.9% 1000 ML 1,000 ML IV ONE (19:30)
--- NOTE | 2017-08-01 19:30 | Emergency Department Report ---
- General Stated complaint: SYNCOPE Time Seen by Provider: 08/01/17 19:20 Source: patient, EMS, old records reviewed Mode of arrival: Stretcher - History of Present Illness Initial comments: Mr. Verduzco is a very pleasant 76-year-old male with history of CVA. His son was assisting him in a seated position when he had a near syncopal episode. He recalls feeling dizzy. He felt as if he may pass out. He feels a little drained right now. He feels generally weak. He denies any pain. Denies any new paralysis. Due to his recent CVA, he has mild dysarthria and left-sided residual neuro deficits. I reviewed recent discharge summary. He was admitted by Dr. Mora. Complaint: generalized weakness -: Sudden - Related Data Home Medications Medication Instructions Recorded Confirmed Last Taken Tamsulosin [Flomax] 0.4 mg PO QHS 05/14/17 08/01/17 08/01/17 Aspirin [Aspirin TAB] 325 mg PO QDAY 08/01/17 08/01/17 08/01/17 QUEtiapine [SEROquel] 25 mg PO QHS 08/01/17 08/01/17 08/01/17 Previous Rx's Medication Instructions Recorded Last Taken Type AtorvaSTATin [Lipitor] 40 mg PO QHS #30 tablet 05/19/17 08/01/17 Rx Carvedilol [Coreg] 25 mg PO BID #60 tablet 05/19/17 08/01/17 Rx Clopidogrel [Plavix] 75 mg PO QDAY #30 tablet 05/19/17 08/01/17 Rx Allergies Allergy/AdvReac Type Severity Reaction Status Date / Time No Known Allergies Allergy Unverified 05/24/13 16:31 ED Review of Systems ROS: Stated complaint: SYNCOPE Other details as noted in HPI Comment: All other systems reviewed and negative Constitutional: denies: fever, malaise Respiratory: denies: cough Cardiovascular: denies: chest pain ED Past Medical Hx - Past Medical History Hx CVA: Yes Additional medical history: high chol - Surgical History Past Surgical History?: Yes Additional Surgical History: leg surgery and colon resection - Social History Smoking Status: Never Smoker Substance Use Type: None Other Social History: He is a . He lives with his son. He is a retired [employer]. - Medications Home Medications: Home Medications Medication Instructions Recorded Confirmed Last Taken Type Tamsulosin [Flomax] 0.4 mg PO QHS 05/14/17 08/01/17 08/01/17 History AtorvaSTATin [Lipitor] 40 mg PO QHS #30 tablet 05/19/17 08/01/17 08/01/17 Rx Carvedilol [Coreg] 25 mg PO BID #60 tablet 05/19/17 08/01/17 08/01/17 Rx Clopidogrel [Plavix] 75 mg PO QDAY #30 tablet 05/19/17 08/01/17 08/01/17 Rx Aspirin [Aspirin TAB] 325 mg PO QDAY 08/01/17 08/01/17 08/01/17 History QUEtiapine [SEROquel] 25 mg PO QHS 08/01/17 08/01/17 08/01/17 History ED Physical Exam - General Limitations: Other (mild dysarthria able to give a full history) General appearance: alert, in no apparent distress - Head Head exam: Present: atraumatic, normocephalic - Eye Eye exam: Present: normal appearance, PERRL, EOMI - ENT ENT exam: Present: mucous membranes moist - Neck Neck exam: Present: normal inspection - Respiratory Respiratory exam: Present: normal lung sounds bilaterally. Absent: respiratory distress, rales, rhonchi, stridor - Cardiovascular Cardiovascular Exam: Present: regular rate, normal rhythm. Absent: systolic murmur, diastolic murmur, rubs, gallop - GI/Abdominal GI/Abdominal exam: Present: soft, normal bowel sounds. Absent: distended, tenderness, guarding, rebound - Rectal Rectal exam: Present: deferred - Extremities Exam Extremities exam: Present: normal inspection - Back Exam Back exam: Present: normal inspection - Neurological Exam Neurological exam: Present: alert, oriented X3, other (left facial droop noted mild dysarthria, left-sided weakness from previous stroke) - Psychiatric Psychiatric exam: Present: normal affect, normal mood - Skin Skin exam: Present: warm, dry, intact, normal color. Absent: rash - Assessment Assessment Interval: Baseline - Level of Consciousness 1a. Level of Consciousness: alert - LOC Questions 1b. LOC Questions: answers correctly - LOC Command 1c. LOC Commands: performs tasks correctly - Best Gaze 2. Best Gaze: normal - Visual 3. Visual: no visual loss - Facial Palsy 4. Facial Palsy: minor paralysis - Motor Arm 5b. Motor Arm Right: no drift 5a. Motor Arm Left: drift - Motor Leg 6a. Motor Leg Left: drift 6b. Motor Leg Right: no drift - Limb Ataxia 7. Limb Ataxia: absent - Sensory 8. Sensory: mild/moderate sensory loss - Best Language 9. Best Language: no aphasia - Dysarthria 10. Dysarthria: mild/moderate dysarthria - Extinction and Inattention 11. Extinction/Inattention: no abnormality - Scoring Total Score: 5 Stroke Severity: Moderate Stroke ED Course Vital Signs 08/01/17 08/01/17 08/01/17 19:23 19:30 20:04 Temperature 97.5 F L Pulse Rate 62 Respiratory 14 18 Rate Blood Pressure 114/60 O2 Sat by Pulse 98 98 Oximetry ED Medical Decision Making - Lab Data Result diagrams: 08/01/17 19:53 08/01/17 19:53 Mr. García is a 76 yo male who presents with altered mental status after taking Seroquel. I spoke with son who explained that he gave his father an early dose of Seroquel because he had a rough night. He did not sleep well. Son witnessed his father just staring off into the distance for a moment. No syncope. This episode occurred shortly after his son gave Mr. García the seroquel dose. Here in the ED, Mr. García was alert appropriate and conversant. He denies syncope. He does admit to feeling tired. He eventually did go to sleep. Normal workup with mild hemoconcentration and elevated BUN. I encouraged increased hydration. Transient delirium transient altered mental status attributed to Seroquel use. Son understands when and how to use the medication. He understands that the medication will make his father drowsy and absent. - EKG Data -: EKG Interpreted by Me EKG shows normal: sinus rhythm, axis, intervals, QRS complexes Rate: normal - EKG Data 08/01/17 19:34 EKG obtained at 1931 Normal sinus rhythm rate of 60 normal axis normal intervals No ST elevation T- wave abnormalities in the lateral leads 08/01/17 19:35 EKG is unchanged from 05/14/2017 - Radiology Data Radiology results: report reviewed Critical care attestation.: If time is entered above; I have spent that time in minutes in the direct care of this critically ill patient, excluding procedure time. ED Disposition Clinical Impression: Delirium due to dissociative drug Disposition: DC-01 TO HOME OR SELFCARE Is pt being admited?: No Does the pt Need Aspirin: No Condition: Stable Instructions: Acute Delirium (ED) Referrals: PRIMARY CARE, [Primary Care Provider] - 3-5 Days Time of Disposition: 22:44
--- NOTE | 2017-08-01 19:59 | XRay Report ---
FINAL REPORT EXAM: XR CHEST 1V AP HISTORY: Weakness COMPARISON: None available. FINDINGS: Frontal view(s) of the chest obtained. Cardiac silhouette within normal limits. No gross consolidation or effusion. No pneumothorax. Surgical clips project over the left upper lung. IMPRESSION: No grossly acute findings.
[2017-08-01 20:22] LABS: Alanine Aminotransferase 19 units/L (7-56); BUN/Creatinine Ratio 29; Blood Urea Nitrogen 26 mg/dL (9-20); Calcium 9.6 mg/dL (8.4-10.2); Hemolysis Index 6
--- NOTE | 2017-08-01 20:29 | Cat Scan Report ---
FINAL REPORT EXAM: CT HEAD/BRAIN WO CON HISTORY: Weakness COMPARISON: CT of the head from April 2017. TECHNIQUE: Axial images obtained skull base through vertex. FINDINGS: No acute intracranial hemorrhage, midline shift or pathologic extra axial fluid collection. Age related volume loss with compensatory dilatation of the ventricular system and chronic small vessel ischemic disease. Otherwise, palmer-white differentiation preserved. Calvarium grossly intact. Moderate calcified plaque at the carotid siphons. Mild mucosal thickening the paranasal sinuses. Mastoid air cells are clear. Prior cataract surgery. IMPRESSION: No grossly acute intracranial abnormality. Age related volume loss and chronic small vessel ischemic disease.
[2017-08-01 20:54] LABS: Red Blood Count 5.04 M/mm3 (3.65-5.03)
[2017-08-01 20:55] LABS: Hematocrit 47.7 % (35.5-45.6); Mean Corpuscular HGB Conc 34 % (32-34); Mean Corpuscular Hemoglobin 32 pg (28-32); Mean Corpuscular Volume 95 fl (84-94)
[2017-08-01 20:59] LABS: Platelet Count 236 K/mm3 (140-440); Red Cell Distribution Width 14.4 % (13.2-15.2)
[2017-08-01 21:00] LABS: Basophils # (Auto) 0.1 K/mm3 (0.0-0.1); Basophils % (Auto) 0.8 % (0.0-1.8); Eosinophils # (Auto) 0.5 K/mm3 (0.0-0.4); Eosinophils % (Auto) 6.5 % (0.0-4.3); Lymphocytes # (Auto) 1.3 K/mm3 (1.2-5.4); Lymphocytes % (Auto) 16.2 % (13.4-35.0); Monocytes # (Auto) 0.9 K/mm3 (0.0-0.8); Monocytes % (Auto) 11.2 % (0.0-7.3)
[2017-08-02 01:59] VITALS: BP 132/75
== END 2017-08-02 02:00 | disposition home or self-care (01) ==
LOC: ED 19:00
DX: F19.921 Other psychoactive substance use, unspecified with intoxication with delirium (principal); E78.00 Pure hypercholesterolemia, unspecified; Z86.73 Personal history of transient ischemic attack (TIA), and cerebral infarction without residual deficits
CPT/HCPCS: 36415; 70450; 71045; 80053; 83735; 84100; 84443; 84484; 85025; 87040; 96360; 99285; J7030; 93005; 93010

== ENCOUNTER 2020-06-07 15:14 | Emergency (ER) | payer MEDICARE, OTHER ==
[2020-06-07] MEDS ORDERED: DIPHtheria,PERTUSSIS(ACELL),TETANUS VACCINE/PF 0.5 ML VIAL IM ONE (15:37)
[2020-06-07] MEDS ORDERED: LIDOCAINE 1%/EPINEPHRINE 1:100,000 VIAL (20 ML) INFILTRATI NR (16:00)
--- NOTE | 2020-06-07 16:37 | Cat Scan Report ---
CT head/brain wo con INDICATION / CLINICAL INFORMATION: 79 years Male; closed head injury. TECHNIQUE: Routine CT head without contrast. All CT scans at this location are performed using CT dos e reduction for ALARA by means of automated exposure control. COMPARISON: The study is compared with previous CT of 08/01/2017. FINDINGS: BRAIN / INTRACRANIAL CONTENTS: There is a hematoma involving left frontal scalp. However, there is no clear CT evidence of acute intracranial hemorrhage or significant mass effect. 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 The f indings appear to correlate with the previous CT. There is mild cerebral atrophy with associated mild prominence of the particular system which also appears unchanged. ORBITS: No significant abnormality of visualized orbits. SINUSES / MASTOIDS: No significant abnormality in the visualized paranasal sinuses or mastoid air berry ls. CRANIOCERVICAL JUNCTION: No significant abnormality. ADDITIONAL FINDINGS: None. IMPRESSION: 1. There is a left frontal scalp hematoma. However, there is no clear CT evidence of acute intracrani al hemorrhage. 2. 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 Signer Name: Luis Armando Jacobs MD Signed: 06/07/2020 4:33 PM Workstation Name: [id number]
--- NOTE | 2020-06-07 17:04 | Emergency Department Report ---
ED Head Trauma HPI - General Chief complaint: Fall Stated complaint: HEAD INJURY Time Seen by Provider: 06/07/20 15:31 Source: patient, EMS Mode of arrival: Stretcher Limitations: Physical Limitation, Other - History of Present Illness Initial comments: Patient is a 79-year-old male who has a past medical history of CVA with some left-sided deficit who was transferring from his bed to his wheelchair and fell. Patient struck his head. He has a laceration to the parietal region on the right. Denies any loss of consciousness. Patient is has minimal pain. He has no injury in extremities. States his neck is nontender and he has full range of motion. - Related Data Home Medications Medication Instructions Recorded Confirmed Last Taken Tamsulosin [Flomax] 0.4 mg PO QHS 05/14/17 08/01/17 08/01/17 Aspirin [Aspirin TAB] 325 mg PO QDAY 08/01/17 08/01/17 08/01/17 QUEtiapine [SEROquel] 25 mg PO QHS 08/01/17 08/01/17 08/01/17 Previous Rx's Medication Instructions Recorded Last Taken Type AtorvaSTATin [Lipitor] 40 mg PO QHS #30 tablet 05/19/17 08/01/17 Rx Clopidogrel [Plavix] 75 mg PO QDAY #30 tablet 05/19/17 08/01/17 Rx carvediloL [Coreg] 25 mg PO BID #60 tablet 05/19/17 08/01/17 Rx Allergies/Adverse reactions: Allergies Allergy/AdvReac Type Severity Reaction Status Date / Time No Known Allergies Allergy Unverified 05/24/13 16:31 ED Review of Systems ROS: Stated complaint: HEAD INJURY Other details as noted in HPI Comment: All other systems reviewed and negative ED Past Medical Hx - Past Medical History Previous Medical History?: Yes Hx CVA: Yes Additional medical history: high chol - Surgical History Additional Surgical History: leg surgery - Social History Smoking Status: Never Smoker - Medications Home Medications: Home Medications Medication Instructions Recorded Confirmed Last Taken Type Tamsulosin [Flomax] 0.4 mg PO QHS 05/14/17 08/01/17 08/01/17 History AtorvaSTATin [Lipitor] 40 mg PO QHS #30 tablet 05/19/17 08/01/17 08/01/17 Rx Clopidogrel [Plavix] 75 mg PO QDAY #30 tablet 05/19/17 08/01/17 08/01/17 Rx carvediloL [Coreg] 25 mg PO BID #60 tablet 05/19/17 08/01/17 08/01/17 Rx Aspirin [Aspirin TAB] 325 mg PO QDAY 08/01/17 08/01/17 08/01/17 History QUEtiapine [SEROquel] 25 mg PO QHS 08/01/17 08/01/17 08/01/17 History ED Physical Exam - General Limitations: Physical Limitation, Other General appearance: alert, in no apparent distress - Head Head exam: Present: atraumatic, normocephalic - Eye Eye exam: Present: normal appearance - ENT ENT exam: Present: mucous membranes moist - Neck Neck exam: Present: normal inspection - Respiratory Respiratory exam: Present: normal lung sounds bilaterally. Absent: respiratory distress, wheezes, rales, rhonchi - Cardiovascular Cardiovascular Exam: Present: regular rate, normal rhythm. Absent: systolic murmur, diastolic murmur, rubs, gallop - GI/Abdominal GI/Abdominal exam: Present: soft, normal bowel sounds. Absent: distended, tenderness, guarding - Rectal Rectal exam: Present: deferred - Extremities Exam Extremities exam: Present: normal inspection - Back Exam Back exam: Present: normal inspection - Neurological Exam Neurological exam: Present: alert, oriented X3 - Psychiatric Psychiatric exam: Present: normal affect, normal mood - Skin Skin exam: Present: warm, dry, intact, normal color. Absent: rash - Laceration /Wound Repair Right Parietal Wound Location: head Wound's Depth, Shape: linear Wound Explored: clean Anesthesia: 1% Lidocaine Volume Anesthetic (ccs): 3 Wound Repaired With: sutures (collins) Number of Sutures: 4 - Radiology Data [facility] [address] [place] [address] Cat Scan Report Signed Patient: ENA HURST JR R#: [id number] : 1940 Acct:[id number] Age/Sex: 79 / M ADM Date: 06/07/20 Loc: ED Attending Dr: Ordering Physician: ALISE NIX MD Date of Service: 06/07/20 Procedure(s): CT head/brain wo con Accession Number(s): [id number] cc: ALISE NIX MD CT head/brain wo con INDICATION / CLINICAL INFORMATION: 79 years Male; closed head injury. TECHNIQUE: Routine CT head without contrast. All CT scans at this location are performed using CT dose reduction for ALARA by means of automated exposure control. COMPARISON: The study is compared with previous CT of 08/01/2017. FINDINGS: BRAIN / INTRACRANIAL CONTENTS: There is a hematoma involving left frontal scalp. However, there is no clear CT evidence of acute intracranial hemorrhage or significant mass effect. 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 The findings appear to correlate with the previous CT. There is mild cerebral atrophy with associated mild prominence of the particular system which also appears unchanged. ORBITS: No significant abnormality of visualized orbits. SINUSES / MASTOIDS: No significant abnormality in the visualized paranasal sinuses or mastoid air cells. CRANIOCERVICAL JUNCTION: No significant abnormality. ADDITIONAL FINDINGS: None. IMPRESSION: 1. There is a left frontal scalp hematoma. However, there is no clear CT evidence of acute intracranial hemorrhage. 2. 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 Signer Name: Luis Armando Jacobs MD Signed: 06/07/2020 4:33 PM Workstation Name: [id number] Transcribed By: MR Dictated By: Luis Armando Jacobs MD Electronically Authenticated By: Luis Armando Jacobs MD Signed Date/Time: 06/07/20 1633 - Medical Decision Making No intracranial process was found the patient be discharged home. Critical care attestation.: If time is entered above; I have spent that time in minutes in the direct care of this critically ill patient, excluding procedure time. ED Disposition Clinical Impression: Closed head injury, Scalp laceration Disposition: DC-01 TO HOME OR SELFCARE Is pt being admited?: No Does the pt Need Aspirin: No Condition: Stable Instructions: Sutures, [place], or Adhesive Wound Closure, [id number], Wound Care, Adult Additional Instructions: Collins need to be removed in 7 days Referrals: RAVIN VILLARREAL MD [Primary Care Provider] - 3-5 Days Time of Disposition: 17:08
[2020-06-07 19:10] VITALS: BP 136/82
== END 2020-06-07 18:30 | disposition home or self-care (01) ==
LOC: ED 15:14
DX: S01.01XA Laceration without foreign body of scalp, initial encounter (principal); Z98.890 Other specified postprocedural states; Z86.73 Personal history of transient ischemic attack (TIA), and cerebral infarction without residual deficits; Z79.899 Other long term (current) drug therapy; W06.XXXA Fall from bed, initial encounter; Y93.89 Activity, other specified; Y92.89 Other specified places as the place of occurrence of the external cause; Y99.8 Other external cause status
CPT/HCPCS: 70450; 90471; 90715

== ENCOUNTER 2020-06-14 10:21 | Emergency (ER) | payer MEDICARE, OTHER ==
[2020-06-14 10:39] VITALS: BP 95/60
--- NOTE | 2020-06-14 11:17 | Emergency Department Report ---
ED General Adult HPI - General Chief complaint: Laceration/Recheck/Suture Stated complaint: STAPLE REMOVAL FROM HEAD Time Seen by Provider: 06/14/20 11:00 Source: patient Mode of arrival: Wheelchair Limitations: No Limitations - History of Present Illness Initial comments: 79-year-old male pt presents with his daughter for staple removal today. Shawanda placed 06/07/20here in ED after fall with head injury. He denies any pain, drainage, redness, or other symptoms. Patient started states the wounds have been healing well. Severity scale (0 -10): 0 - Related Data Home Medications Medication Instructions Recorded Confirmed Last Taken Tamsulosin [Flomax] 0.4 mg PO QHS 05/14/17 08/01/17 08/01/17 Aspirin [Aspirin TAB] 325 mg PO QDAY 08/01/17 08/01/17 08/01/17 QUEtiapine [SEROquel] 25 mg PO QHS 08/01/17 08/01/17 08/01/17 Previous Rx's Medication Instructions Recorded Last Taken Type AtorvaSTATin [Lipitor] 40 mg PO QHS #30 tablet 05/19/17 08/01/17 Rx Clopidogrel [Plavix] 75 mg PO QDAY #30 tablet 05/19/17 08/01/17 Rx carvediloL [Coreg] 25 mg PO BID #60 tablet 05/19/17 08/01/17 Rx Allergies Allergy/AdvReac Type Severity Reaction Status Date / Time No Known Allergies Allergy Unverified 05/24/13 16:31 ED Review of Systems ROS: Stated complaint: STAPLE REMOVAL FROM HEAD Other details as noted in HPI Constitutional: denies: chills, diaphoresis, fever, malaise, weakness Skin: denies: change in color Neurological: denies: headache ED Past Medical Hx - Past Medical History Previous Medical History?: Yes Hx CVA: Yes Additional medical history: high chol - Surgical History Additional Surgical History: leg surgery - Social History Smoking Status: Never Smoker - Medications Home Medications: Home Medications Medication Instructions Recorded Confirmed Last Taken Type Tamsulosin [Flomax] 0.4 mg PO QHS 05/14/17 08/01/17 08/01/17 History AtorvaSTATin [Lipitor] 40 mg PO QHS #30 tablet 05/19/17 08/01/17 08/01/17 Rx Clopidogrel [Plavix] 75 mg PO QDAY #30 tablet 05/19/17 08/01/17 08/01/17 Rx carvediloL [Coreg] 25 mg PO BID #60 tablet 05/19/17 08/01/17 08/01/17 Rx Aspirin [Aspirin TAB] 325 mg PO QDAY 08/01/17 08/01/17 08/01/17 History QUEtiapine [SEROquel] 25 mg PO QHS 08/01/17 08/01/17 08/01/17 History ED Physical Exam - General Limitations: No Limitations General appearance: alert, in no apparent distress - Head Head exam: Present: normocephalic, other (For shawanda noted to right parietal region of scalp without surrounding erythema, drainage, or tenderness to palpation noted; no wound dehiscence noted) - Respiratory Respiratory exam: Absent: respiratory distress - Cardiovascular Cardiovascular Exam: Present: regular rate - Neurological Exam Neurological exam: Present: alert, oriented X3 - Psychiatric Psychiatric exam: Present: normal affect, normal mood - Skin Skin exam: Present: warm, dry, intact, normal color. Absent: rash ED Course Vital Signs 06/14/20 10:38 Temperature 98 F Pulse Rate 77 Respiratory 16 Rate Blood Pressure 95/60 [Right] O2 Sat by Pulse 96 Oximetry - Procedure Description Procedures done: 4 shawanda removed from scalp. Patient tolerated procedure well without any immediate complications. No bleeding occurred. ED Medical Decision Making - Medical Decision Making 79-year-old male pt presents with his daughter for staple removal today. Shawanda placed 06/07/20here in ED after fall with head injury. He denies any pain, drainage, redness, or other symptoms. Patient started states the wounds have been healing well. [place] removed without any immediate complication. Patient tolerated procedure well. Discussed signs and symptoms that should prompt immediate return to the emergency department in detail with patient and patient's daughter who both state understanding. He is well-appearing and stable for discharge home Critical care attestation.: If time is entered above; I have spent that time in minutes in the direct care of this critically ill patient, excluding procedure time. ED Disposition Clinical Impression: Removal of staple Disposition: DC-01 TO HOME OR SELFCARE Is pt being admited?: No Condition: Stable Instructions: Wound Closure Removal, Care After Referrals: PRIMARY CARE, [Referring] - 3-5 Days
== END 2020-06-14 11:33 | disposition home or self-care (01) ==
LOC: ED 10:21
DX: S01.01XD Laceration without foreign body of scalp, subsequent encounter (principal); Z48.02 Encounter for removal of sutures; Z98.890 Other specified postprocedural states; Z79.899 Other long term (current) drug therapy; X58.XXXD Exposure to other specified factors, subsequent encounter
CPT/HCPCS: 99282